=== PATIENT | male | born 1950 | race Caucasian/White ===

== ENCOUNTER → 2016-09-25 | Outpatient (CLI) | payer OTHER ==
[~2016-09-25] MED LIST: ASPI-346 PO; FRS/40 PO; GABA1CAP5 PO; LISI20TA3 PO; MAGN400T6 PO; METF1TAB53 PO; METO1TAB66 PO; METO1TAB69 PO; MULT-506 PO; ROSU40TA PO
== END | disposition home or self-care (01) ==
LOC: C.LABSPEC 12:22
PROVIDERS: ATTEND Internal Medicine
DX: B34.9 Viral infection, unspecified (principal)

== ENCOUNTER → 2017-01-22 | Outpatient (CLI) | payer OTHER ==
[~2017-01-22] MED LIST changes: +GABA800T PO; +GLIP-197 PO; +METO-452 PO; +METO-479 PO; +METO100T44 PO; -METO1TAB66 PO; -METO1TAB69 PO; +POTA20TA16 PO
[2017-01-22 12:59] LABS: BASO % 0.6 %; BASO ABS # 0.06 K/uL (0-0.2); COMPLETE YES; EOS % 2.3 %; HEMATOCRIT 51.6 % (42-52); IG% 0.3 %; LYMPH % 25.7 %; LYMPH ABS # 2.46 K/uL (1.2-3.4); MEAN CELL VOLUME 91.5 fL (80-100); MEAN CORPUSCULAR HEMOGLOBIN 27.1 pg (25-34); MEAN CORPUSCULAR HGB CONC 29.7 g/dl (32-36); MONO % 9.1 %; PLATELET COUNT 304 K/uL (130-400); RED BLOOD COUNT 5.64 M/uL (4.7-6.1); WHITE BLOOD COUNT 9.59 K/uL (4.8-10.8)
[2017-01-22 13:23] LABS: ALT/SGPT 14 U/L (12-78); BLOOD UREA NITROGEN 8 mg/dl (7-18); BUN/CREATININE RATIO 6.9 (10-20); CARBON DIOXIDE 35 mmol/L (21-32); CHLORIDE 95 mmol/L (98-107); CHOLESTEROL 102 mg/dl (0-200); GLUCOSE 327 mg/dl (70-99); SODIUM 138 mmol/L (136-145); TRIGLYCERIDES 261 mg/dl (0-150); VERY LOW DENSITY LIPOPROT CALC 52 mg/dl
[2017-01-22 13:28] LABS: ALB/GLOB RATIO 0.8 (0.9-2); ALKALINE PHOSPHATASE 87 U/L (45-117); AST/SGOT 12 U/L (15-37); CHOLESTEROL/HDL RATIO 2.8; HDL CHOLESTEROL 36 mg/dl
[2017-01-22 13:35] LABS: BETA-HYDROXYBUTYRATE 1.56 mg/dL (0.2-2.81)
[2017-01-22 13:44] LABS: ESTIMATED AVERAGE GLUCOSE 214 mg/dl; HA1C FLAG Normal (Normal)
[2017-01-22 15:20] LABS: RATIO 675.7 mcg/mg (0-30.0)
[2017-01-22 18:22] LABS: CALCIUM 9.1 mg/dl (8.5-10.1)
== END | disposition home or self-care (01) ==
LOC: C.LABSPEC 12:09
PROVIDERS: ATTEND Internal Medicine
DX: E11.65 Type 2 diabetes mellitus with hyperglycemia (principal); I25.10 Atherosclerotic heart disease of native coronary artery without angina pectoris; J44.9 Chronic obstructive pulmonary disease, unspecified; E78.5 Hyperlipidemia, unspecified

== ENCOUNTER → 2017-02-03 | Outpatient (CLI) | payer OTHER ==
[~2017-02-03] MED LIST changes: -GABA800T PO; -GLIP-197 PO; -METO-452 PO; -METO-479 PO; -METO100T44 PO; +METO1TAB66 PO; +METO1TAB69 PO; -POTA20TA16 PO
[2017-02-03 10:14] LABS: HEMATOCRIT 49.9 % (42-52); MEAN CELL VOLUME 89.1 fL (80-100); MEAN CORPUSCULAR HEMOGLOBIN 28.6 pg (25-34); MEAN CORPUSCULAR HGB CONC 32.1 g/dl (32-36); PLATELET COUNT 296 K/uL (130-400); WHITE BLOOD COUNT 10.86 K/uL (4.8-10.8)
[2017-02-03 10:41] LABS: ALT/SGPT 12 U/L (12-78); AST/SGOT 12 U/L (15-37); BLOOD UREA NITROGEN 9 mg/dl (7-18); BUN/CREATININE RATIO 10.6 (10-20); CALCIUM 9.3 mg/dl (8.5-10.1); CARBON DIOXIDE 34 mmol/L (21-32); CHLORIDE 99 mmol/L (98-107); CREATININE 0.88 mg/dl (0.60-1.40); GLUCOSE 164 mg/dl (70-99); MAGNESIUM 1.9 mg/dl (1.8-2.4); POTASSIUM 3.7 mmol/L (3.5-5.1); SODIUM 139 mmol/L (136-145)
[2017-02-03 10:44] LABS: CHOLESTEROL 113 mg/dl (0-200); CHOLESTEROL/HDL RATIO 3.1; HDL CHOLESTEROL 36 mg/dl; TRIGLYCERIDES 200 mg/dl (0-150); VERY LOW DENSITY LIPOPROT CALC 40 mg/dl
== END | disposition home or self-care (01) ==
LOC: C.LAB 09:08
PROVIDERS: ATTEND Internal Medicine Cardiovascular Disease
DX: E78.5 Hyperlipidemia, unspecified (principal); I25.10 Atherosclerotic heart disease of native coronary artery without angina pectoris; I25.5 Ischemic cardiomyopathy; E83.42 Hypomagnesemia; I50.22 Chronic systolic (congestive) heart failure; R00.0 Tachycardia, unspecified; I11.0 Hypertensive heart disease with heart failure

== ENCOUNTER 2017-03-03 14:29 | Emergency (ER) | payer OTHER ==
[~2017-03-03] VITALS: Ht 185.4 cm; Wt 99.5 kg
[~2017-03-03 14:29] MED LIST changes: -METO1TAB66 PO
[2017-03-03 14:36] VITALS: TEMP 36.5; Ht 185.4 cm; Wt 99.5 kg
[2017-03-03] MEDS ORDERED: ADENOSINE IV SOLN 3 MG/ML 2 ML VIAL ONE ×2 (14:53)
--- NOTE | 2017-03-03 15:06 | EMERGENCY ROOM VISIT NOTE ---
History Report prepared by Rad: Leon Argueta Under the Supervision of: Dr. Shiraz Patterson M.D. First contact with patient: 14:49 Chief Complaint: TACHYCARDIA Stated Complaint: ELEVATED HEARTRATE, LOW BLOOD PRESSURE History of Present Illness The patient is a 66 year old male who presents to the Emergency Room with complaints of constant tachycardia beginning this morning. The patient states that he took his heart rate at home, and then received a phone call from ID and was told to go to the ED. He reports that he feels fine, and he did not even notice his symptoms. The patient notes that he was cutting the grass yesterday but did nothing out of the ordinary. He states that he is currently taking Metoprolol, and he has not missed a dose. The patient reports that he has not had changes in his medication. 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 The patient states that he has a history of two MIs as well. He denies chest pain and shortness of breath. Source of History: patient Onset: this morning Position: chest Quality: other (tachycardia) Timing: constant Associated Symptoms: No chest pain, No SOB Review of Systems See HPI for pertinent positives & negatives. A total of 10 systems reviewed and were otherwise negative. Past Medical & Surgical Medical Problems: (1) Kidney stones Family History FHx: cancer FHx: heart disease Hypertension Kidney disease Kidney stones Social History Smoking Status: Former Smoker Housing Status: lives alone Current/Historical Medications Scheduled Aspirin (Graeme Low Dose), 81 MG PO QAM Furosemide (Lasix), 80 MG PO QAM Gabapentin (Neurontin), 1,200 MG PO BID Lisinopril (Prinivil), 40 MG PO BID Magnesium Oxide (Mag-Ox), 400 MG PO BID Metformin Hcl (Glucophage Ext Rel), 1,000 MG PO BID Metoprolol Succ (Toprol Xl) (Toprol-Xl ), 100 MG PO QAM Metoprolol Succinate (Toprol Xl), 1 TAB PO DAILY Multivitamin (Multivitamin), 1 TAB PO QAM Rosuvastatin Calcium (Crestor), 40 MG PO HS Allergies Coded Allergies: No Known Allergies (Verified , 03/03/17) Physical Exam Vital Signs Date Time Temp Pulse Resp B/P (MAP) Pulse Ox O2 Delivery O2 Flow Rate FiO2 03/03/17 15:58 102 14 114/70 94 Nasal Cannula 2.0 03/03/17 15:04 102 19 95 03/03/17 15:01 95 Nasal Cannula 4.0 03/03/17 15:00 113 03/03/17 14:59 105 18 113/74 94 03/03/17 14:54 153 25 03/03/17 14:53 153 03/03/17 14:51 158/136 03/03/17 14:36 36.5 159 18 113/72 92 Room Air Physical Exam GENERAL: Patient is well appearing and in no acute distress. HEENT: No acute trauma, normocephalic atraumatic, mucous membranes moist, no nasal congestion, no scleral icterus. NECK: No stridor, no adenopathy, no meningismus, trachea is midline. LUNGS: No dyspnea. Clear to auscultation and equal bilaterally. No wheeze, no rhonchi. HEART: Tachycardic rate and regular rhythm. No murmurs, rubs, gallops appreciated. ABDOMEN: Soft, nontender, bowel sounds positive, no masses appreciated, no peritonitis. BACK: No midline tenderness, no CVA tenderness EXTREMITIES: Normal motion all extremities, no cyanosis, no edema. NEUROLOGIC: Alert and oriented, no acute motor or sensory deficits, no focal weakness, cranial nerves grossly intact. SKIN: No rash, no jaundice, no diaphoresis. Medical Decision & Procedures ER Provider Diagnostic Interpretation: X ray results are stated below per my interpretation and the radiologist's interpretation. CHEST ONE VIEW PORTABLE CLINICAL HISTORY: 66 years-old Male presenting with Palpitations. TECHNIQUE: Portable upright AP view of the chest was obtained. COMPARISON: 04/25/2015. FINDINGS: Smith sternotomy wires and mediastinal surgical clips again noted. Enlargement of the cardiac silhouette, stable from prior. No focal infiltrate. No large effusion or pneumothorax. Osseous structures and upper abdomen normal. IMPRESSION: 1. Cardiomegaly. No jesika pulmonary edema. Electronically signed by: Carlos Nguyen M.D. 03/03/2017 3:15 PM Dictated Date/Time: 03/03/2017 3:14 PM Laboratory Results 03/03/17 14:50 Red Blood Count 5.58, Mean Corpuscular Volume 88.0, Mean Corpuscular Hemoglobin 27.2, Mean Corpuscular Hemoglobin Concent 31.0, Mean Platelet Volume 10.6, Neutrophils (%) (Auto) 64.4, Lymphocytes (%) (Auto) 21.4, Monocytes (%) (Auto) 13.1, Eosinophils (%) (Auto) 0.6, Basophils (%) (Auto) 0.2, Neutrophils # (Auto ) 8.91, Lymphocytes # (Auto) 2.96, Monocytes # (Auto) 1.82, Eosinophils # (Auto ) 0.09, Basophils # (Auto) 0.03 03/03/17 14:50 Test 03/03/17 14:50 White Blood Count 13.85 K/uL (4.8-10.8) Red Blood Count 5.58 M/uL (4.7-6.1) Hemoglobin 15.2 g/dL (14.0-18.0) Hematocrit 49.1 % (42-52) Mean Corpuscular Volume 88.0 fL (80-100) Mean Corpuscular Hemoglobin 27.2 pg (25-34) Mean Corpuscular Hemoglobin Concent 31.0 g/dl (32-36) Platelet Count 315 K/uL (130-400) Mean Platelet Volume 10.6 fL (7.4-10.4) Neutrophils (%) (Auto) 64.4 % Lymphocytes (%) (Auto) 21.4 % Monocytes (%) (Auto) 13.1 % Eosinophils (%) (Auto) 0.6 % Basophils (%) (Auto) 0.2 % Neutrophils # (Auto) 8.91 K/uL (1.4-6.5) Lymphocytes # (Auto) 2.96 K/uL (1.2-3.4) Monocytes # (Auto) 1.82 K/uL (0.11-0.59) Eosinophils # (Auto) 0.09 K/uL (0-0.5) Basophils # (Auto) 0.03 K/uL (0-0.2) RDW Standard Deviation 43.7 fL (36.4-46.3) RDW Coefficient of Variation 13.5 % (11.5-14.5) Immature Granulocyte % (Auto) 0.3 % Immature Granulocyte # (Auto) 0.04 K/uL (0.00-0.02) Anion Gap 5.0 mmol/L (3-11) Est Creatinine Clear Calc Drug Dose 58.5 ml/min Estimated GFR () 54.7 Estimated GFR (Non- 47.2 BUN/Creatinine Ratio 10.7 (10-20) Calcium Level 9.4 mg/dl (8.5-10.1) Magnesium Level 2.2 mg/dl (1.8-2.4) Total Creatine Kinase 72 U/L (39-308) Creatine Kinase MB 1.5 ng/ml (0.5-3.6) Creatine Kinase MB Ratio 2.1 (0-3.0) Troponin I 0.056 ng/ml (0-0.045) Thyroid Stimulating Hormone (TSH) 0.946 uIu/ml (0.300-4.500) Laboratory results as reviewed by me. Medications Administered Medications (Trade) Dose Ordered Sig/Griffin Route Start Time Stop Time Status Last Admin Dose Admin Adenosine (Adenosine IV) 3 mg STK-MED ONCE .ROUTE 03/03/17 14:53 03/03/17 14:54 DC 03/03/17 15:05 3 MG Adenosine (Adenosine IV) 3 mg STK-MED ONCE .ROUTE 03/03/17 14:53 03/03/17 14:54 DC 03/03/17 15:06 3 MG Sodium Chloride 1,000 ml @ 125 mls/hr Q8H STAT IV 03/03/17 15:18 03/03/17 23:17 03/03/17 15:18 125 MLS/HR Metoprolol Succinate (Toprol Xl Tab) 50 mg NOW STAT PO 03/03/17 16:17 03/03/17 16:18 DC 03/03/17 16:17 50 MG Toprol XL 50mg PO Now ECG Indication: tachycardia Rate (beats per minute): 153 Rhythm: SVT Findings: nonspecific-ST abn (Lateral), no ectopy Change: Repeat EKG in the same visit: Sinus tachycardia, rate of 105, with 1st degree AV block and LBBB ED Course 1450: The patient was evaluated in room A12B. A complete history and physical exam was performed. 1453: Ordered Adenosine 3 mg .ROUTE, Adenosine 3 mg .ROUTE 1516: I reevaluated the patient, and he is feeling much better. 1518: Ordered Sodium Chloride 1000 ml @ 125 mls/hr IV 1607: I discussed the patient's case with Dr. Camejo, Cardiology. He suggests the patient is discharge, and his Metoprolol is increased to 150mg daily. 1616: Reevaluated the patient. I discussed my consult with Dr. Camejo, Cardiology. Discussed results and discharge instructions: he verbalized understanding and agreement. The patient is ready for discharge. Medical Decision Differential: NSR, SVT, PACs, PVCs, Cardiac Dysrhythmia, Endocrine Dysfunction, Eletrolyte/Metabolic Abnormality, Pulmonary Embolism, Infectious, GI, amonst other pathologies entertained. 66 yr old pleasant male with history of CABG a few years ago and notes doing well until this morning when note quite feeling himself. Non-specific symptoms. Noted HR elevated at home and advised [facility] come [facility]. In SVT on arrival. Verbally consented patient to adensine and risks/benefits to which he agrees. Given 12 mg adenosine and [id number] rhythm to NSR. Low grade tachy which he states is normal for him. Feeling much better. Given IV fluids. Labs checked. Reviewed mild trop elevation with mild bump in Cr with Dr Camejo who agrees with outpatient management. Suspect Trop elevated secondary to rate as opposed to acs. Will follow up with cards in near future and Dr Camejo advised increasing Toprol XL to 150mg daily. Reviewed with Pts PCP who is aware of plan and will check in with patient for Cr evaluation. Medication Reconcilliation Current Medication List: was personally reviewed by me Blood Pressure Screening Patient's blood pressure: Normal blood pressure Blood pressure disposition: Did not require urgent referral Consults Time Called: 1602 Consulting Physician: Dr. Camejo, Cardiology Returned Call: 1607 I discussed the patient's case with Dr. Camejo, Cardiology. He suggests the patient is discharge, and his Metoprolol is increased to 150mg daily. Impression Primary Impression: SVT (supraventricular tachycardia) Additional Impressions: Dehydration Elevated troponin Critical Care I have personally spent greater than 45 minutes of critical care time in the direct management of this patient. This was a life/limb threatening event. This includes time spent evaluating patient, direct bedside care, chart review, placing orders, interpretation of diagnostic studies, discussion with consultants, patient, and family members, as well as other required patient management activities. This 45 minutes is in excess of all separately billable procedures. Scribe Attestation The scribe's documentation has been prepared under my direction and personally reviewed by me in its entirety. I confirm that the note above accurately reflects all work, treatment, procedures, and medical decision making performed by me. Departure Information Dispostion Home / Self-Care Prescriptions Metoprolol Succinate (TOPROL XL) 50 Mg Tab 1 TAB PO DAILY for 30 Days, #30 TAB 5 Refills Prov: Shiraz Patterson M.D. 03/03/17 Referrals Stevo Magdaleno M.D. (PCP) Patient Instructions My [facility] Additional Instructions Please follow up with your Primary Care Provider in the next week for repeat check and evaluation of your kidneys. Keep well hydrated and avoid excessive exertion over the next few days. Follow up with your Early Childhood Assistant for repeat evaluation as well as soon as possible. We have increased your Toprol XL dose to 150mg Daily from 100mg currently. We will send a prescription of 50mg Toprol XL to your pharmacy. Problem Qualifiers
[2017-03-03 15:15] LABS: BASO % 0.2 %; BASO ABS # 0.03 K/uL (0-0.2); COMPLETE YES; EOS % 0.6 %; HEMATOCRIT 49.1 % (42-52); IG% 0.3 %; LYMPH % 21.4 %; LYMPH ABS # 2.96 K/uL (1.2-3.4); MEAN CORPUSCULAR HEMOGLOBIN 27.2 pg (25-34); MEAN PLATELET VOLUME 10.6 fL (7.4-10.4); MONO % 13.1 %; NEUT % 64.4 %; PLATELET COUNT 315 K/uL (130-400); RED BLOOD COUNT 5.58 M/uL (4.7-6.1); WHITE BLOOD COUNT 13.85 K/uL (4.8-10.8)
--- NOTE | 2017-03-03 15:17 | DIAGNOSTIC IMAGING REPORT ---
CHEST ONE VIEW PORTABLE CLINICAL HISTORY: 66 years-old Male presenting with Palpitations. TECHNIQUE: Portable upright AP view of the chest was obtained. COMPARISON: 04/25/2015. FINDINGS: Smith sternotomy wires and mediastinal surgical clips again noted. Enlargement of the cardiac silhouette, stable from prior. No focal infiltrate. No large effusion or pneumothorax. Osseous structures and upper abdomen normal. IMPRESSION: 1. Cardiomegaly. No jesika pulmonary edema. Electronically signed by: Carlos Nguyen M.D. 03/03/2017 3:15 PM Dictated Date/Time: 03/03/2017 3:14 PM
[2017-03-03] MEDS ORDERED: SODIUM CHLORIDE 0.9% 1000ML 1,000 ML IV STA (15:18)
[2017-03-03 15:30] LABS: BUN/CREATININE RATIO 10.7 (10-20); CALCIUM 9.4 mg/dl (8.5-10.1); CREATININE 1.5 mg/dl (0.60-1.40); MAGNESIUM 2.2 mg/dl (1.8-2.4); POTASSIUM 4.6 mmol/L (3.5-5.1)
[2017-03-03 15:49] LABS: CKMB/CK RATIO 2.1 (0-3.0); THYROID STIMULATING HORMONE 0.946 uIu/ml (0.300-4.500)
[2017-03-03 15:58] VITALS: BP 114/70; PULSE 102; O2SAT 94
[2017-03-03] MEDS ORDERED: METOPROLOL SUCC 50MG EXT REL TAB PO STA (16:17)
[2017-03-03] MEDS ORDERED: METO1TAB66 PO (16:23)
== END 2017-03-03 16:43 | disposition home or self-care (01) ==
LOC: C.EDB 14:32 → C.EDA 16:43
DX: I47.1 Supraventricular tachycardia (principal); E86.0 Dehydration; R78.89 Finding of other specified substances, not normally found in blood; Z87.442 Personal history of urinary calculi; Z87.891 Personal history of nicotine dependence; Z79.82 Long term (current) use of aspirin; Z79.4 Long term (current) use of insulin; Z79.899 Other long term (current) drug therapy; Z80.9 Family history of malignant neoplasm, unspecified; Z82.49 Family history of ischemic heart disease and other diseases of the circulatory system; Z84.1 Family history of disorders of kidney and ureter

== ENCOUNTER → 2017-03-08 | Outpatient (CLI) | payer OTHER ==
[~2017-03-08] MED LIST changes: +METO1TAB66 PO
[2017-03-08 13:57] LABS: BLOOD UREA NITROGEN 10 mg/dl (7-18); BUN/CREATININE RATIO 11.4 (10-20); CALCIUM 9.5 mg/dl (8.5-10.1); CARBON DIOXIDE 34 mmol/L (21-32); CHLORIDE 97 mmol/L (98-107); CREATININE 0.88 mg/dl (0.60-1.40); GLUCOSE 146 mg/dl (70-99); POTASSIUM 4.2 mmol/L (3.5-5.1); SODIUM 137 mmol/L (136-145)
== END | disposition home or self-care (01) ==
LOC: C.LABSPEC 12:29
PROVIDERS: ATTEND Internal Medicine
DX: R94.4 Abnormal results of kidney function studies (principal)

== ENCOUNTER → 2017-05-20 | Outpatient (CLI) | payer OTHER ==
[2017-05-20 13:06] LABS: BLOOD UREA NITROGEN 11 mg/dl (7-18); BUN/CREATININE RATIO 12.6 (10-20); CALCIUM 9.2 mg/dl (8.5-10.1); CARBON DIOXIDE 35 mmol/L (21-32); CHLORIDE 98 mmol/L (98-107); CHOLESTEROL 94 mg/dl (0-200); CREATININE 0.88 mg/dl (0.60-1.40); GLUCOSE 185 mg/dl (70-99); POTASSIUM 3.8 mmol/L (3.5-5.1); SODIUM 138 mmol/L (136-145); TRIGLYCERIDES 164 mg/dl (0-150); VERY LOW DENSITY LIPOPROT CALC 33 mg/dl
[2017-05-20 13:10] LABS: CHOLESTEROL/HDL RATIO 2.8; HDL CHOLESTEROL 33 mg/dl
[2017-05-20 14:17] LABS: ESTIMATED AVERAGE GLUCOSE 214 mg/dl; HA1C FLAG Normal (Normal)
== END | disposition home or self-care (01) ==
LOC: C.LABSPEC 12:22
PROVIDERS: ATTEND Internal Medicine
DX: I10 Essential (primary) hypertension (principal); I25.10 Atherosclerotic heart disease of native coronary artery without angina pectoris; E78.5 Hyperlipidemia, unspecified; E11.9 Type 2 diabetes mellitus without complications

== ENCOUNTER → 2017-05-26 | Outpatient (CLI) | payer OTHER ==
[2017-05-26 13:19] LABS: HEMATOCRIT 50.3 % (42-52); MEAN CELL VOLUME 90.5 fL (80-100); MEAN CORPUSCULAR HEMOGLOBIN 29.7 pg (25-34); MEAN CORPUSCULAR HGB CONC 32.8 g/dl (32-36); MEAN PLATELET VOLUME 10.8 fL (7.4-10.4); PLATELET COUNT 257 K/uL (130-400); RED BLOOD COUNT 5.56 M/uL (4.7-6.1)
[2017-05-26 13:33] LABS: PARTIAL THROMBOPLASTIN RATIO 1.1; PROTHROMBIN TIME (PATIENT) 10.7 SECONDS (9.0-12.0)
== END | disposition home or self-care (01) ==
LOC: C.LAB 11:41
PROVIDERS: ATTEND Internal Medicine Cardiovascular Disease
DX: Z01.818 Encounter for other preprocedural examination (principal)

== ENCOUNTER 2024-06-10 18:13 | Inpatient (IN) ==
--- NOTE | 2024-06-10 18:55 | XRay Report ---
EXAM: Radiograph of the Chest 1 View INDICATION: Weakness. Cough. TECHNIQUE: Frontal view of the chest. COMPARISON: 09/01/2019 FINDINGS: Lungs and pleural spaces: Stable pulmonary hyperinflation. Minimal basilar parenchymal scarring noted. No consolidation or pulmonary edema. No pleural effusion or pneumothorax. Heart: Coronary bypass changes noted. Mediastinum: Normal contour. Bones/joints: No fracture, erosion or dislocation. Soft tissues: No abnormality noted. No radiopaque foreign body noted. Vasculature: Stable ectatic aorta. Upper abdomen: No abnormality noted. IMPRESSION: Chronic changes. No acute disease. ACT 112: Negative or not required by law. Electronically signed by Daisy Medrano 06-10-2024 6:53 PM
[2024-06-10] MEDS: ACETAMINOPHEN 500 MG TAB PO STA (19:02)
[2024-06-10] MEDS: dexAMETHasone**PF** 10 MG/ML VIAL IV ONE (19:02)
--- NOTE | 2024-06-10 19:07 | Emergency Department Note ---
Impression & Plan COVID-19, Chronic hypoxemic respiratory failure, Weakness ED Provider Note Provider: Augusto Jessica MD DATE OF SERVICE: 06/10/2024 CHIEF COMPLAINT:weak, COVID HISTORY OF PRESENT ILLNESS: Patient is a 73-year-old gentleman with history of CAD, heart failure, kidney stones, COPD on chronic 4 L of oxygen presenting here today with sister reporting that over the past 5 days he has been having some increasing weakness and myalgias. Tested positive for COVID on Wednesday. Is not a COVID before but is vaccinated. Has not had increase his oxygen requirement does not feel horribly short of breath but a little bit more. States he feels generally weak and has a lot of bodyaches. Not eating and drinking so well the sisters been trying to help with protein shakes today. No significant abdominal pain or vomiting or diarrhea reported. Fell a few days ago and scraped his left arm but denies striking his head. Denies syncope or dizziness. Did clean this area. PAST MEDICAL HISTORY: As noted above MEDICATIONS:reviewed home meds, reports taking SOCIAL HISTORY:Smoker, lives by himself PHYSICAL EXAM: GENERAL: alert and oriented in no acute distress on stretcher Head: normocephalic and atraumatic EYES: No injection, discharge or icterus. EOMI. NECK: Trachea midline. Supple. ENT: Mucous membranes pink and moist. LUNGS: Airway patent. No retractions. Breath sounds expiratory wheeze HEART: Regular rate and rhythm. No chest wall tenderness ABDOMEN: Soft and non-tender, without guarding or rebound. SKIN: Acyanotic, warm, dry EXTREMITIES: Without swelling, tenderness or deformity with an approximately 3 cm healing skin tear over the left proximal forearm. No significant bony tenderness here. Good range of motion of the left shoulder and arm. NEUROLOGICAL: No focal deficits weakness. No aphasia. No facial droop or slurred speech. EK bpm normal sinus rhythm without PVC or PAC. No acute ST segment elevation or depression with QTc 47. CONTINUOUS CARDIAC MONITORING: was ordered and showed a heart rate of 80s to 90s bpm in normal sinus rhythm with some brief episodes of sinus tachycardia in the 100s on neb Patient's laboratory studies and imaging reviewed. Differential includes Infection, dehydration, metabolic abnormality, hypo/hyperglycemia, electrolyte disturbance, anemia, hypoxia, cardiac sources, intracerebral event, toxicologic, neurologic, as well as other pathologies. IMPRESSION/MEDICAL DECISION MAKING: Chronic medical conditions including similar respiratory disease. Wheezy and given some steroid and DuoNeb here. General weakness likely related to COVID that he tested positive for at home. X-ray obtained to exclude underlying pneumonia or pneumothorax. Does not seem fluid overloaded. Did review the chest x-ray inter myself without findings of pneumothorax or pneumonia or pulmonary edema/effusion. At baseline oxygenation but more generalized weakness and decreased intake. Electrolytes, renal function, and CBC obtained. Full respiratory viral panel obtained. Blood here with mild anemia 10.7. No leukocytosis 8.3. No severe electrolyte abnormalities however with a creatinine elevation to 2.1 and BUN of 22. Compared to previous last values for about a year ago creatinine that time was 1.3. Some scanned notes from the [facility] indicate the patient may have stage III-IV CKD so unsure if the creatinine of 2.1 is acutely new. No transaminitis is noted. Normal troponin. No evidence of rhabdomyolysis/elevated CK. Patient on reassessment still feeling quite weak and fatigued. Discussed with him options at this time. Wish to be careful avoid fluid overload will try some oral hydration and in shared decision making he wished to be observed here as he lives alone by himself and his week. I do not feel the skin tear on his left arm requires further closure or antibiotics at this timedoubt cellulitis. Doubt fracture here. Did chlorhexidine the skin tear myself and bandaged. Will reach out to the hospitalist further observation given his weakness. DIAGNOSIS: COVID-19, weakness, chronic respiratory failure, CKD DISPOSITION: Hospitalist will evaluate Patient was agreeable with this plan. Past Med/Surg History Problem List (Updated 06/10/24 @ 20:37 by Augusto Jessica M.D.) Weakness (Acute) COVID-19 (Acute) Urinary symptom or sign Chronic heart failure with preserved ejection fraction Cardiomyopathy Ischemic CM Vitamin D deficiency Idiopathic polyneuropathy CAD (coronary artery disease) S/p NSTEMI and CABG x 3 IN 2015 Hypertension Gout Diabetes mellitus, type 2 Abdominal pain (Acute) Acute pulmonary edema (Acute) Acute respiratory failure (Acute) Bladder stones (Acute) Hypotension (Acute 09/09/13) Kidney stones (Acute) Paroxysmal SVT (supraventricular tachycardia) Respiratory failure (Acute) Urolithiasis (Acute 09/09/13) Urosepsis (Acute) Hearing deficit Encounter for pre-operative examination Polyp of colon COPD (chronic obstructive pulmonary disease) Influenza A Chronic hypoxemic respiratory failure (Acute) Hyponatremia Elevated BUN Medical History AVNRT (AV lisa re-entry tachycardia) Chronic diastolic CHF (congestive heart failure) On home oxygen therapy Chronic obstructive pulmonary disease Gout Cancer Peripheral neuropathy Myocardial Infarction Hyperlipidemia Surgical History S/P cystoscopy with ureteral stent placement S/P ablation of accessory bypass tract History of esophagogastroduodenoscopy (EGD) History of colonoscopy History of tooth extraction History of coronary artery bypass graft Social History Smoking Status: Current every day smoker Cigarettes Per Day: 15 CIGS PER WEEK; Second Hand Exposure: No; Do You Dip or Chew Tobacco: No; Hx Alcohol Use: No Hx Substance Use: No Preferred Language: Upper Sorbian Communication Ability: Effective Change Management Administrator Required: No Beliefs That Will Affect Care: None marital status: Current Living Situation: Alone Feels Safe at Home: Yes Assistive Devices: Denture - Upper, Denture - Lower and Oxygen - Continuous Allergies Allergies Allergy/AdvReac Type Severity Reaction Status Date / Time No Known Allergies Allergy Verified 04/30/23 10:17 Home Meds Home Medications Medication Instructions Recorded Confirmed gabapentin 800 mg tablet 800 mg PO BID 07/08/18 04/30/23 glipizide 5 mg tablet 5 mg PO BID 07/08/18 04/30/23 lisinopril 20 mg tablet 20 mg PO BID 07/08/18 04/30/23 magnesium oxide 400 mg PO BID 07/08/18 04/30/23 metformin 1,000 mg tablet 1,000 mg PO BID 07/08/18 04/30/23 multivitamin 1 tab PO QAM 07/08/18 04/30/23 potassium chloride 20 mEq 20 meq PO QAM 07/08/18 04/30/23 tablet,extended release rosuvastatin 40 mg tablet (Crestor) 40 mg PO QAM 07/08/18 04/30/23 furosemide 40 mg tablet (Lasix) 40 mg PO QAM 06/04/20 04/30/23 aspirin 81 mg tablet,delayed 81 mg PO QAM 07/08/20 04/30/23 release metoprolol succinate 100 mg 100 mg PO DAILY 11/16/22 04/30/23 tablet,extended release 24 hr Previous Rx's Medication Instructions Recorded tamsulosin 0.4 mg capsule 0.4 mg PO HS #30 caps 07/22/20 peg [id number] See Rx Instructions PO .COMPLEX #2 06/08/23 178.7-7.3-0.5-1.12-0.9 gram oral mL soln (Suflave) Results & Data (ED) Vital Signs Vital Signs - 24 hr 06/10/24 18:17 06/10/24 18:34 06/10/24 18:40 Temperature 36.2 C L Temperature Source Temporal Artery Scan Pulse Rate 102 H 96 H Pulse Rate [Right Finger] 94 H Pulse Rhythm Regular Pulse Rhythm [Right Finger] Regular Pulse Strength Normal Pulse Strength [Right Finger] Normal Respiratory Rate 20 Respiratory Effort / Characteristics Non-Labored Spontaneous Non-Labored Respiratory Depth Normal Normal Respiratory Pattern Regular Regular Blood Pressure 105/71 Blood Pressure [Right Arm] 113/89 Blood Pressure Mean 82 Blood Pressure Mean [Right Arm] 97 Blood Pressure Position Sitting Blood Pressure Position [Right Arm] Lying Pulse Oximetry 93 98 Oxygen Delivery Method Nasal Cannula Nasal Cannula Oxygen Flow Rate 4 4 Sepsis Recent Fever Within 48 Hours No Sepsis New/Unexplained Change in Mental Status N/A Sepsis Action Taken by Nursing No Action Required 06/10/24 18:42 06/10/24 19:27 06/10/24 20:13 Temperature Temperature Source Pulse Rate 94 H Pulse Rate [Right Finger] 90 Pulse Rhythm Regular Pulse Rhythm [Right Finger] Pulse Strength Pulse Strength [Right Finger] Respiratory Rate 18 Respiratory Effort / Characteristics Non-Labored Spontaneous Respiratory Depth Respiratory Pattern Blood Pressure Blood Pressure [Right Arm] 131/90 Blood Pressure Mean Blood Pressure Mean [Right Arm] 103 Blood Pressure Position Blood Pressure Position [Right Arm] Lying Pulse Oximetry 98 94 97 Oxygen Delivery Method Room Air Nasal Cannula Nasal Cannula Oxygen Flow Rate 4 4 Sepsis Recent Fever Within 48 Hours Sepsis New/Unexplained Change in Mental Status Sepsis Action Taken by Nursing Laboratory Data 06/10/24 19:00 06/10/24 19:00 Lab Results 06/10/24 06/10/24 Range/Units 18:38 19:00 WBC 8.31 (4.8-10.8) K/ul RBC 3.61 L (4.70-6.10) M/uL Hgb 10.7 L (14.0-18.0) g/dl Hct 34.3 L (42.0-52.0) % MCV 95.0 (80.0-100.0) fL MCH 29.6 (25.0-34.0) pg MCHC 31.2 L (32.0-36.0) g/dL RDW Std Deviation 44.5 (36.4-46.3) fL RDW Coeff of Zeny 12.9 (11.5-14.5) % Plt Count 328 (130-400) K/uL MPV 9.5 (9.4-12.4) fL Immature Gran % (Auto) 0.5 % Neut % (Auto) 69.8 % Lymph % (Auto) 17.9 % Ross % (Auto) 11.1 % Eos % (Auto) 0.5 % Baso % (Auto) 0.2 % Neut # (Auto) 5.80 (1.40-6.50) K/uL Lymph # (Auto) 1.49 (1.20-3.40) K/uL Ross # (Auto) 0.92 H (0.11-0.59) K/uL Eos # (Auto) 0.04 (0.00-0.50) K/uL Baso # (Auto) 0.02 (0.00-0.20) K/uL Immature Gran # (Auto) 0.04 (0.01-0.20) K/uL PT 11.1 (9.0-12.0) Seconds INR 1.0 (0.9-1.1) Sodium 140 (136-145) mmol/L Potassium 4.2 (3.5-5.1) mmol/L Chloride 95 L (98-107) mmol/L Carbon Dioxide 40 H (21-32) mmol/L Anion Gap 5 (3-11) BUN 22 (6-23) mg/dl Creatinine 2.13 H (0.6-1.4) mg/dl Est Cr Clr Drug Dosing 32.9 ml/min eGFR 31.68 BUN/Creatinine Ratio 10.3 (10-20) Glucose 155 H (70-99(Fasting)) mg/dl Calcium 8.7 (8.6-10.3) mg/dl Magnesium 2.1 (1.7-2.4) mg/dl Total Bilirubin 0.4 (0.2-1.0) mg/dl AST 32 (13-39) U/L ALT 15 (7-52) U/L Alkaline Phosphatase 96 (34-104) U/L Total Creatine Kinase 33 (30-223) U/L Troponin I High Sens 11.1 (0-20) pg/ml B-Natriuretic Peptide 115 H (0-100) pg/ml Total Protein 6.7 (6.0-8.3) gm/dl Albumin 2.8 L (3.4-5.0) gm/dl Globulin 3.9 (2.5-4.0) gm/dl Albumin/Globulin Ratio 0.7 L (0.9-2) TSH 1.228 (0.300-4.500) uIu/ml Adenovirus (PCR) Not Detected (NotDetected) B. pertussis DNA (PCR) Not Detected (NotDetected) B.parapertussis DNA PCR Not Detected (NotDetected) C. pneumoniae DNA (PCR) Not Detected (NotDetected) Coronavirus OC43 (PCR) Not Detected (NotDetected) Coronavirus HKU1 (PCR) Not Detected (NotDetected) Coronavirus 229E (PCR) Not Detected (NotDetected) SARS-CoV-2 (PCR) DETECTED A (NotDetected) Coronavirus NL63 (PCR) Not Detected (NotDetected) Human Metapneumovir PCR Not Detected (NotDetected) Influenza Type A (PCR) Not Detected (NotDetected) Influenza Type B (PCR) Not Detected (NotDetected) M. pneumoniae (PCR) Not Detected (NotDetected) Parainfluenza 1 (PCR) Not Detected (NotDetected) Parainfluenza 2 (PCR) Not Detected (NotDetected) Parainfluenza 3 (PCR) Not Detected (NotDetected) Parainfluenza 4 (PCR) Not Detected (NotDetected) RSV (PCR) Not Detected (NotDetected) Entero/Rhino (PCR) Not Detected (NotDetected) Administered Medications Discontinued Medications Acetaminophen (Acetaminophen 500 Mg Tab) 1,000 mg PO NOW STA Stop: 06/10/24 18:50 Last Admin: 06/10/24 19:02 Dose: 1,000 mg Documented By: MCKENZIE Albuterol (Albut/Ipratrop 3mg/0.5mg Neb 3 Ml Vial) 12 ml NEB ONE ONE; Protocol Stop: 06/10/24 18:50 Last Admin: 06/10/24 19:27 Dose: 12 ml Documented By: CAROLE Dexamethasone Sodium Phosphate (DexamethasonePf 10 Mg/Ml Vial) 6 mg IV NOW ONE Stop: 06/10/24 18:50 Last Admin: 06/10/24 19:02 Dose: 6 mg Documented By: MCKENZIE Imaging Data Radiologist's Impression: Chest X-Ray 06/10/24 18:39 EXAM: Radiograph of the Chest 1 View INDICATION: Weakness. Cough. TECHNIQUE: Frontal view of the chest. COMPARISON: 09/01/2019 FINDINGS: Lungs and pleural spaces: Stable pulmonary hyperinflation. Minimal basilar parenchymal scarring noted. No consolidation or pulmonary edema. No pleural effusion or pneumothorax. Heart: Coronary bypass changes noted. Mediastinum: Normal contour. Bones/joints: No fracture, erosion or dislocation. Soft tissues: No abnormality noted. No radiopaque foreign body noted. Vasculature: Stable ectatic aorta. Upper abdomen: No abnormality noted. IMPRESSION: Chronic changes. No acute disease. ACT 112: Negative or not required by law. Electronically signed by Daisy Medrano 06-10-2024 6:53 PM Discharge Plan Visit Data Chief Complaint: Flu Like Symptoms Stated Complaint: FLU LIKE SX,SOB ED Provider: Augusto Jessica Discharge Problem: COVID-19, Chronic hypoxemic respiratory failure, Weakness Forms Stand Alone Forms: My [facility] [employer] Prescriptions Prescriptions: No Action metoprolol succinate 100 mg tablet extended release 24 hr 100 mg PO DAILY Suflave 178.7-7.3-0.5 gram recon soln See Rx Instructions PO .COMPLEX Qty: 2 0RF Rx Instructions: orally; TAKE FIRST DOSE AT 6 PM AND SECOND DOSE 6 HOURS PRIOR TO PROCEDURE BIN: [id number] PCN: [id number] GROUP: [id number] multivitamin Tablet 1 tab PO QAM lisinopril 20 mg Tablet 20 mg PO BID gabapentin 800 mg Tablet 800 mg PO BID metformin 1,000 mg Tablet 1,000 mg PO BID glipizide 5 mg Tablet 5 mg PO BID rosuvastatin [Crestor] 40 mg Tablet 40 mg PO QAM magnesium oxide 400 mg Capsule 400 mg PO BID potassium chloride 20 mEq Tablet Extended Release 20 meq PO QAM furosemide [Lasix] 40 mg tablet 40 mg PO QAM aspirin 81 mg Tablet,Delayed Release (Dr/Ec) 81 mg PO QAM tamsulosin 0.4 mg capsule 0.4 mg PO HS Qty: 30 0RF Referrals Referrals: Divine Sibley MD [Primary Care Provider] -
[2024-06-10 19:16] LABS: Basophils # (auto) 0.02 K/uL (0.00-0.20); Basophils % (auto) 0.2 %; Eosinophils # (auto) 0.04 K/uL (0.00-0.50); Eosinophils % (auto) 0.5 %; Hematocrit (blood only) 34.3 % (42.0-52.0); Hemoglobin 10.7 g/dl (14.0-18.0); Immature Granulocytes # (auto) 0.04 K/uL (0.01-0.20); Immature Granulocytes % (auto) 0.5 %; Lymphocytes # (auto) 1.49 K/uL (1.20-3.40); Lymphocytes % (auto) 17.9 %; Mean Corpuscular Hemoglobin 29.6 pg (25.0-34.0); Mean Corpuscular Hgb Conc 31.2 g/dL (32.0-36.0); Mean Platelet Volume 9.5 fL (9.4-12.4); Monocytes # (auto) 0.92 K/uL (0.11-0.59); Monocytes % (auto) 11.1 %; Neutrophils % (auto) 69.8 %; Platelet Count 328 K/uL (130-400); RDW Coefficient of Variation 12.9 % (11.5-14.5); RDW Standard Deviation 44.5 fL (36.4-46.3); Red Blood Count 3.61 M/uL (4.70-6.10); White Blood Count 8.31 K/ul (4.8-10.8)
[2024-06-10] MEDS: ALBUT/IPRATROP 3MG/0.5MG NEB 3 ML VIAL NEB ONE (19:27)
[2024-06-10 19:37] LABS: Albumin Globulin Ratio 0.7 (0.9-2); Albumin Level 2.8 gm/dl (3.4-5.0); BUN Creatinine Ratio 10.3 (10-20); Bilirubin,Total 0.4 mg/dl (0.2-1.0); Calcium 8.7 mg/dl (8.6-10.3); Creatinine Clr Calc Pharmacy 32.9 ml/min; Globulin 3.9 gm/dl (2.5-4.0); Magnesium 2.1 mg/dl (1.7-2.4); Potassium 4.2 mmol/L (3.5-5.1); Total Protein 6.7 gm/dl (6.0-8.3)
[2024-06-10 19:40] LABS: Adenovirus PCR Not Detected (NotDetected); Bordetella parapertussis PCR Not Detected (NotDetected); Bordetella pertussis PCR Not Detected (NotDetected); Chlamydia pneumoniae PCR Not Detected (NotDetected); Coronavirus 229E PCR Not Detected (NotDetected); Coronavirus CoV-2 (COVID19)PCR DETECTED (NotDetected); Coronavirus HKU1 PCR Not Detected (NotDetected); Coronavirus NL63 PCR Not Detected (NotDetected); Coronavirus OC43PCR Not Detected (NotDetected); Human Metapneumovirus PCR Not Detected (NotDetected); Influenza A PCR Not Detected (NotDetected); Influenza B PCR Not Detected (NotDetected); Mycoplasma pneumoniae PCR Not Detected (NotDetected); Parainfluenza Virus 1 PCR Not Detected (NotDetected); Parainfluenza Virus 2 PCR Not Detected (NotDetected); Parainfluenza Virus 3 PCR Not Detected (NotDetected); Parainfluenza Virus 4 PCR Not Detected (NotDetected); Respiratory Syncytial VirusPCR Not Detected (NotDetected); Rhinovirus/Enterovirus PCR Not Detected (NotDetected)
[2024-06-10 19:42] LABS: Troponin I High Sensitivity 11.1 pg/ml (0-20)
[2024-06-10 19:51] LABS: Prothrombin Time 11.1 Seconds (9.0-12.0); Thyroid Stimulating Hormone 1.228 uIu/ml (0.300-4.500)
--- NOTE | 2024-06-10 21:25 | History & Physical Report ---
Date of Service June 10, 2024 Assessment & Plan (1) Weakness: (2) Acute on chronic respiratory failure with hypoxia: (3) COPD (chronic obstructive pulmonary disease): (4) Chronic hypoxemic respiratory failure: (5) Acute kidney injury superimposed on CKD: (6) COVID-19: (7) Cardiomyopathy: (8) Chronic heart failure with preserved ejection fraction: (9) Idiopathic polyneuropathy: (10) CAD (coronary artery disease): (11) Hypertension: (12) Diabetes mellitus, type 2: (13) Paroxysmal SVT (supraventricular tachycardia): Plan Generalized weakness- Multifactorial, with contributing factors including but not limited to: Dehydration, acute kidney injury, progression of general debilitation, COVID, COPD exacerbation, others Patient uses a cane, a walker, a scooter, and/or a wheelchair to get around in his home His daughter does not anticipate a need for PT/OT assessment Acute on chronic respiratory failure with hypoxia/COPD exacerbation/COVID- Patient typically requires 4 L cannula oxygen, and continues to be in the 95 to 97% range on 4 L while in the ED Status post dexamethasone 6 mg IV in the ED, and will continue 6 mg IV every morning Status post 1 hour-long DuoNeb in the ED, and will continue DuoNebs every 2 hours as needed He was diagnosed with COVID 5 days ago, when his symptoms began, and primarily has associated adrenal insufficiency Acute kidney injury superimposed on CKD- Creatinine 2.13, with base 1.3 Hold furosemide, lisinopril, magnesium oxide, potassium chloride Placed on LR at 80 mL/h x 1 L Check a renal function panel and magnesium level in the a.m. CAD/hypertension/PSVT/ischemic cardiomyopathy- Holding medications as noted above Reduce metoprolol succinate from 75 mg daily to 50 mg daily Diabetes mellitus- Hold glipizide and metformin Placed on Accu-Cheks with NovoLog SSI BPH with LUTS- Continue tamsulosin at 0.8 mg at bedtime, his [facility] notations suggest his dosing is 0.8 not 0.4 mg Idiopathic polyneuropathy- Gabapentin dosing is 800 mg p.o. 3 times daily History of Present Illness Chief Complaint: The patient presents to the emergency department with worsening shortness of breath, generalized muscle aches and weakness over the past 5 days, having been tested positive for COVID 5 days ago Primary Care Provider: Divine Sibley MD The patient is a 73-year-old male with a past medical history including idiopathic polyneuropathy, cardiomyopathy, HFpEF, hypertension, gout, diabetes mellitus type 2, kidney stones, PSVT, chronic respiratory failure due to severe COPD with 4 L oxygen dependency, and hearing deficit. The patient was noted 5 days ago to develop some generalized muscle aches and weakness, and became more short of breath in spite of not requiring more than his 4 L baseline oxygen. He tested positive for COVID 5 days ago. He walks with a walker, also has a scooter that he uses, and sometimes uses a wheelchair. He also had an instance of scraping his left forearm when he briefly lost his balance, and has been bandaged since that time. His daughter is in the exam room with him in the ED this evening, and helps to supply a significant part of his HPI and ROS. Allergies Allergy/AdvReac Type Severity Reaction Status Date / Time No Known Allergies Allergy Verified 04/30/23 10:17 Home Medications Medication Instructions Recorded Confirmed Type gabapentin 800 mg tablet 800 mg PO BID 07/08/18 04/30/23 History glipizide 5 mg tablet 5 mg PO BID 07/08/18 04/30/23 History lisinopril 20 mg tablet 20 mg PO BID 07/08/18 04/30/23 History magnesium oxide 400 mg PO BID 07/08/18 04/30/23 History metformin 1,000 mg tablet 1,000 mg PO BID 07/08/18 04/30/23 History multivitamin 1 tab PO QAM 07/08/18 04/30/23 History potassium chloride 20 mEq 20 meq PO QAM 07/08/18 04/30/23 History tablet,extended release rosuvastatin 40 mg tablet (Crestor) 40 mg PO QAM 07/08/18 04/30/23 History furosemide 40 mg tablet (Lasix) 40 mg PO QAM 06/04/20 04/30/23 History aspirin 81 mg tablet,delayed 81 mg PO QAM 07/08/20 04/30/23 History release tamsulosin 0.4 mg capsule 0.4 mg PO HS #30 caps 07/22/20 04/30/23 Rx metoprolol succinate 100 mg 100 mg PO DAILY 11/16/22 04/30/23 History tablet,extended release 24 hr peg 3350-sod [id number] See Rx Instructions PO .COMPLEX #2 06/08/23 Rx 178.7-7.3-0.5-1.12-0.9 gram oral mL soln (Suflave) Past Med/Surg History Problem List (Updated 06/10/24 @ 23:51 by Zain Jackson MD) Acute on chronic respiratory failure with hypoxia Acute kidney injury superimposed on CKD Weakness (Acute) COVID-19 (Acute) Urinary symptom or sign Chronic heart failure with preserved ejection fraction Cardiomyopathy Ischemic CM Vitamin D deficiency Idiopathic polyneuropathy CAD (coronary artery disease) S/p NSTEMI and CABG x 3 IN 2015 Hypertension Gout Diabetes mellitus, type 2 Abdominal pain (Acute) Acute pulmonary edema (Acute) Acute respiratory failure (Acute) Bladder stones (Acute) Hypotension (Acute 09/09/13) Kidney stones (Acute) Paroxysmal SVT (supraventricular tachycardia) Respiratory failure (Acute) Urolithiasis (Acute 09/09/13) Urosepsis (Acute) Hearing deficit Encounter for pre-operative examination Polyp of colon COPD (chronic obstructive pulmonary disease) Influenza A Chronic hypoxemic respiratory failure (Acute) Hyponatremia Elevated BUN Medical History AVNRT (AV lisa re-entry tachycardia) Chronic diastolic CHF (congestive heart failure) On home oxygen therapy Chronic obstructive pulmonary disease Gout Cancer Peripheral neuropathy Myocardial Infarction Hyperlipidemia Surgical History S/P cystoscopy with ureteral stent placement S/P ablation of accessory bypass tract History of esophagogastroduodenoscopy (EGD) History of colonoscopy History of tooth extraction History of coronary artery bypass graft Social History Smoking Status: Current every day smoker Tobacco Type: Cigarettes Cigarettes Per Day: 15 CIGS PER WEEK; Second Hand Exposure: No; Do You Dip or Chew Tobacco: No; Hx Alcohol Use: No Hx Substance Use: No Preferred Language: Wallisian Communication Ability: Effective Accounts Payable Lead Required: No Beliefs That Will Affect Care: None marital status: Current Living Situation: Alone Feels Safe at Home: Yes Assistive Devices: Cane, Denture - Upper, Denture - Lower, Glasses, Hearing Aid - Bilateral, Oxygen - Continuous and Walker Review of Systems Review of Systems: The patient denies chest pain, palpitations, lower extremity swelling, sore throat, fevers, chills, sweats, nausea, vomiting, diarrhea , constipation, abdominal pain, pelvic pain, blood in urine or stool, dysuria, urinary frequency or urgency, lightheadedness, dizziness, headache, loss of consciousness, abnormal bruising or bleeding, focal weakness, numbness or tingling in arms, back or neck pain, or night sweats. The review of systems is otherwise negative other than for that already noted above, and at least 10 systems have been reviewed. Physical Exam Physical Exam: The patient is awake, alert and oriented 3, appears fatigued, normocephalic and atraumatic, lying in bed and in no acute distress. He allows his daughter to an swer a number of the questions for him HEENT--PERRL, EOMI, mucous membranes and oropharynx mildly dry. Neck--supple. No JVD. No bruits. Thyroid normal, trachea midline, no adenopathy. Heart--normal S1 and S2. No murmurs, rubs or gallops. Lungs--clear bilaterally, decreased breath sounds throughout. No respiratory distress, no accessory muscle use. Abdomen--normal bowel sounds and soft. Nontender. Nondistended, no hernias or masses, no organomegaly. Extremities--No edema. Dermatologic--normal skin turgor, normal color, no abnormal lymph nodes, no rash. Neurologic--cranial nerves II through XII grossly intact. Rheumatologic--normal range of motion. Psychiatric--normal affect. Results & Data Results & Data Vital Signs (Past 12 Hours) Vital Signs Temp Pulse Pulse Resp BP BP Pulse Ox 06/10/24 20:13 131/90 97 06/10/24 19:27 90 18 94 06/10/24 18:42 94 H 98 06/10/24 18:40 94 H 113/89 98 06/10/24 18:34 96 H 06/10/24 18:17 36.2 C L 102 H 20 105/71 93 O2 Del Method O2 Flow Rate 06/10/24 20:13 Nasal Cannula 4 06/10/24 19:27 Nasal Cannula 4 06/10/24 18:42 Room Air 06/10/24 18:40 Nasal Cannula 4 06/10/24 18:34 11/02/24 18:17 Nasal Cannula 4 Laboratory Results Laboratory Results WBC 8.31 K/ul (4.8-10.8) 06/10/24 19:00 RBC 3.61 M/uL (4.70-6.10) L 06/10/24 19:00 Hgb 10.7 g/dl (14.0-18.0) L 06/10/24 19:00 Hct 34.3 % (42.0-52.0) L 06/10/24 19:00 MCV 95.0 fL (80.0-100.0) 06/10/24 19:00 MCH 29.6 pg (25.0-34.0) 06/10/24 19:00 MCHC 31.2 g/dL (32.0-36.0) L 06/10/24 19:00 RDW Std Deviation 44.5 fL (36.4-46.3) 06/10/24 19:00 RDW Coeff of Zeny 12.9 % (11.5-14.5) 06/10/24 19:00 Plt Count 328 K/uL (130-400) 06/10/24 19:00 MPV 9.5 fL (9.4-12.4) 06/10/24 19:00 Immature Gran % (Auto) 0.5 % 06/10/24 19:00 Neut % (Auto) 69.8 % 06/10/24 19:00 Lymph % (Auto) 17.9 % 06/10/24 19:00 Eddy % (Auto) 11.1 % 06/10/24 19:00 Eos % (Auto) 0.5 % 06/10/24 19:00 Baso % (Auto) 0.2 % 06/10/24 19:00 Neut # (Auto) 5.80 K/uL (1.40-6.50) 06/10/24 19:00 Lymph # (Auto) 1.49 K/uL (1.20-3.40) 06/10/24 19:00 Eddy # (Auto) 0.92 K/uL (0.11-0.59) H 06/10/24 19:00 Eos # (Auto) 0.04 K/uL (0.00-0.50) 06/10/24 19:00 Baso # (Auto) 0.02 K/uL (0.00-0.20) 06/10/24 19:00 Immature Gran # (Auto) 0.04 K/uL (0.01-0.20) 06/10/24 19:00 PT 11.1 Seconds (9.0-12.0) 06/10/24 19:00 INR 1.0 (0.9-1.1) 06/10/24 19:00 Sodium 140 mmol/L (136-145) 06/10/24 19:00 Potassium 4.2 mmol/L (3.5-5.1) 06/10/24 19:00 Chloride 95 mmol/L (98-107) L 06/10/24 19:00 Carbon Dioxide 40 mmol/L (21-32) H 06/10/24 19:00 Anion Gap 5 (3-11) 06/10/24 19:00 BUN 22 mg/dl (6-23) 06/10/24 19:00 Creatinine 2.13 mg/dl (0.6-1.4) H 06/10/24 19:00 Est Cr Clr Drug Dosing 32.9 ml/min 06/10/24 19:00 eGFR 31.68 06/10/24 19:00 BUN/Creatinine Ratio 10.3 (10-20) 06/10/24 19:00 Glucose 155 mg/dl (70-99(Fasting)) H 06/10/24 19:00 POC Glucose 187 mg/dl (70-99) H 06/10/24 23:06 Calcium 8.7 mg/dl (8.6-10.3) 06/10/24 19:00 Magnesium 2.1 mg/dl (1.7-2.4) 06/10/24 19:00 Total Bilirubin 0.4 mg/dl (0.2-1.0) 06/10/24 19:00 AST 32 U/L (13-39) 06/10/24 19:00 ALT 15 U/L (7-52) 06/10/24 19:00 Alkaline Phosphatase 96 U/L (34-104) 06/10/24 19:00 Total Creatine Kinase 33 U/L (30-223) 06/10/24 19:00 Troponin I High Sens 11.1 pg/ml (0-20) 06/10/24 19:00 B-Natriuretic Peptide 115 pg/ml (0-100) H 06/10/24 19:00 Total Protein 6.7 gm/dl (6.0-8.3) 06/10/24 19:00 Albumin 2.8 gm/dl (3.4-5.0) L 06/10/24 19:00 Globulin 3.9 gm/dl (2.5-4.0) 06/10/24 19:00 Albumin/Globulin Ratio 0.7 (0.9-2) L 06/10/24 19:00 TSH 1.228 uIu/ml (0.300-4.500) 06/10/24 19:00 Adenovirus (PCR) Not Detected (NotDetected) 06/10/24 18:38 B. pertussis DNA (PCR) Not Detected (NotDetected) 06/10/24 18:38 B.parapertussis DNA PCR Not Detected (NotDetected) 06/10/24 18:38 C. pneumoniae DNA (PCR) Not Detected (NotDetected) 06/10/24 18:38 Coronavirus OC43 (PCR) Not Detected (NotDetected) 06/10/24 18:38 Coronavirus HKU1 (PCR) Not Detected (NotDetected) 06/10/24 18:38 Coronavirus 229E (PCR) Not Detected (NotDetected) 06/10/24 18:38 SARS-CoV-2 (PCR) DETECTED (NotDetected) A 06/10/24 18:38 Coronavirus NL63 (PCR) Not Detected (NotDetected) 06/10/24 18:38 Human Metapneumovir PCR Not Detected (NotDetected) 06/10/24 18:38 Influenza Type A (PCR) Not Detected (NotDetected) 06/10/24 18:38 Influenza Type B (PCR) Not Detected (NotDetected) 06/10/24 18:38 M. pneumoniae (PCR) Not Detected (NotDetected) 06/10/24 18:38 Parainfluenza 1 (PCR) Not Detected (NotDetected) 06/10/24 18:38 Parainfluenza 2 (PCR) Not Detected (NotDetected) 06/10/24 18:38 Parainfluenza 3 (PCR) Not Detected (NotDetected) 06/10/24 18:38 Parainfluenza 4 (PCR) Not Detected (NotDetected) 06/10/24 18:38 RSV (PCR) Not Detected (NotDetected) 06/10/24 18:38 Entero/Rhino (PCR) Not Detected (NotDetected) 06/10/24 18:38 Impressions Chest X-Ray 06/10/24 18:39 EXAM: Radiograph of the Chest 1 View INDICATION: Weakness. Cough. TECHNIQUE: Frontal view of the chest. COMPARISON: 09/01/2019 FINDINGS: Lungs and pleural spaces: Stable pulmonary hyperinflation. Minimal basilar parenchymal scarring noted. No consolidation or pulmonary edema. No pleural effusion or pneumothorax. Heart: Coronary bypass changes noted. Mediastinum: Normal contour. Bones/joints: No fracture, erosion or dislocation. Soft tissues: No abnormality noted. No radiopaque foreign body noted. Vasculature: Stable ectatic aorta. Upper abdomen: No abnormality noted. IMPRESSION: Chronic changes. No acute disease. ACT 112: Negative or not required by law. Electronically signed by Daisy Medrano 06-10-2024 6:53 PM Code Status & VTE Plan Code Status DNR/DNI VTE Prophylaxis Plan VTE Prophylaxis will be ordered: Yes PG Care Time/CCT Total # of Minutes Spent Total Time Spent with Patient: Total time spent is greater than 50% in coordination of care (as documented) at patient's floor/unit and/or counseling patient: Coding Level of Care Code 13777 INT INP/OBS CARE 3/75MIN Diagnoses Weakness R53.1 Acute on chronic respiratory failure with hypoxia J96.21 COPD (chronic obstructive pulmonary disease) J44.9 Chronic hypoxemic respiratory failure J96.11 Acute kidney injury superimposed on CKD N17.9; N18.9 COVID-19 U07.1 Cardiomyopathy I42.9 Chronic heart failure with preserved ejection fraction I50.32 Idiopathic polyneuropathy G60.9 CAD (coronary artery disease) I25.10 Hypertension I10 Diabetes mellitus, type 2 E11.9 Paroxysmal SVT (supraventricular tachycardia) I47.1
[2024-06-10] MEDS ORDERED: ACETAMINOPHEN 325 MG TAB PO PRN (23:00)
[2024-06-10] MEDS ORDERED: ONDANSETRON INJ 2 MG/ML 2 ML VIAL IV PRN (23:00)
[2024-06-10] MEDS ORDERED: DEXTROSE 50% 50 ML SYRINGE IV PRN (23:00)
[2024-06-10] MEDS ORDERED: GLUCAGON FOR INJ 1 MG VIAL SQ PRN (23:00)
[2024-06-10] MEDS ORDERED: GLUCOSE 40% GEL 15 GM TUBE PO PRN (23:00)
[2024-06-10] MEDS ORDERED: CARBOHYDRATES FOR HYPOGLYCEMIA PO PRN (23:00)
[2024-06-10] MEDS ORDERED: GLUCOSE 10 TAB/TUBE PO PRN (23:00)
[2024-06-10] MEDS: LACTATED RINGER'S 1,000 ML IV SCH (23:41)
[2024-06-11 03:35] LABS: Appearance Urine Clear (Clear); Bacteria Urine Automated None Seen (None Seen); Bilirubin Urine Negative (Negative); Blood Urine Trace (Negative); Color Urine Yellow; Glucose Urine UA Negative (Negative); Granular Casts Urine Present /lpf (None Prsent); Ketones Urine Trace (Negative); Leukocyte Esterase Urine Negative (Negative); Nitrite Urine Negative (Negative); Protein Urine 2+ (Negative); RBC Urine Automated 0-2 /hpf (0-2); Specific Gravity Urine 1.017 (1.000-1.030); Urobilinogen Urine Negative (Negative); WBC Urine Automated 0-5 /hpf (0-5); pH Urine 5.5 (4.5-7.5)
[2024-06-11 06:51] LABS: Basophils # (auto) 0.01 K/uL (0.00-0.20); Basophils % (auto) 0.2 %; Hematocrit (blood only) 31.1 % (42.0-52.0); Hemoglobin 9.9 g/dl (14.0-18.0); Immature Granulocytes # (auto) 0.06 K/uL (0.01-0.20); Lymphocytes # (auto) 0.63 K/uL (1.20-3.40); Mean Corpuscular Hemoglobin 29.6 pg (25.0-34.0); Mean Corpuscular Hgb Conc 31.8 g/dL (32.0-36.0); Mean Corpuscular Volume 92.8 fL (80.0-100.0); Mean Platelet Volume 10.1 fL (9.4-12.4); Monocytes % (auto) 4.8 %; Neutrophils # (auto) 5.28 K/uL (1.40-6.50); Platelet Count 314 K/uL (130-400); RDW Coefficient of Variation 12.9 % (11.5-14.5); RDW Standard Deviation 43.8 fL (36.4-46.3); Red Blood Count 3.35 M/uL (4.70-6.10); White Blood Count 6.28 K/ul (4.8-10.8)
[2024-06-11 07:17] LABS: Albumin Level 2.7 gm/dl (3.4-5.0); BUN Creatinine Ratio 10.5 (10-20); Calcium 8.5 mg/dl (8.6-10.3); Creatinine Clr Calc Pharmacy 33.5 ml/min; Estimated Average Glucose 137 mg/dl; Hemoglobin A1C 6.4 % (4.5-5.6); Magnesium 2.1 mg/dl (1.7-2.4); Phosphorus 3.9 mg/dl (2.5-4.9); Potassium 4.7 mmol/L (3.5-5.1)
[2024-06-11] MEDS: MULTIVITAMIN TAB PO SCH (09:01)
[2024-06-11] MEDS: METOPROLOL SUCC 50MG EXT REL TAB PO SCH (09:02)
[2024-06-11] MEDS: GABAPENTIN 300 MG CAP PO SCH (09:02)
[2024-06-11] MEDS: ROSUVASTATIN CALCIUM 20 MG TAB PO SCH (09:02)
[2024-06-11] MEDS: dexAMETHasone 6 MG in SYRINGE 0 ML IV SCH (09:15)
[2024-06-11] MEDS: HEPARIN SOD 5,000 UNIT/0.5 ML VIAL SQ SCH (09:15)
[2024-06-11] MEDS: INSULIN ASPART PER UNIT CHARGE SC SCH (09:15)
[2024-06-11] MEDS: INFLUENZA VACC TS2024-25(65y+)/PF (IIV3) 0.5mL Syr IM ONE (11:40)
--- NOTE | 2024-06-11 17:31 | Electrocardiogram Report ---
Test Reason : Blood Pressure : */* mmHG Vent. Rate : 94 BPM Atrial Rate : 94 BPM P-R Int : 168 ms QRS Dur : 110 ms QT Int : 390 ms P-R-T Axes : 80 89 47 degrees QTcB Int : 487 ms Normal sinus rhythm Left ventricular hypertrophy Cannot rule out Inferior infarct , age undetermined Cannot rule out Anterior infarct , age undetermined Abnormal ECG When compared with ECG of 01-Sep-2019 18:35, No significant change was found Confirmed by Rosa Robert (Annette) on 06/11/2024 5:31:27 PM Referred By: REFERRED SELF Confirmed By: Rosa Robert
--- NOTE | 2024-06-11 18:03 | Hospitalist Progress Note ---
Date of Service June 11, 2024 Assessment & Plan (1) Weakness: (2) Acute on chronic respiratory failure with hypoxia: (3) COPD (chronic obstructive pulmonary disease): (4) Chronic hypoxemic respiratory failure: (5) Acute kidney injury superimposed on CKD: (6) COVID-19: (7) Cardiomyopathy: (8) Chronic heart failure with preserved ejection fraction: (9) Idiopathic polyneuropathy: (10) CAD (coronary artery disease): (11) Hypertension: (12) Diabetes mellitus, type 2: (13) Paroxysmal SVT (supraventricular tachycardia): Plan Generalized weakness- Multifactorial, with contributing factors including but not limited to: Dehydration, acute kidney injury, progression of general debilitation, COVID, COPD exacerbation, others Patient uses a cane, a walker, a scooter, and/or a wheelchair to get around in his home His daughter does not anticipate a need for PT/OT assessment consulted PT/OT Acute on chronic respiratory failure with hypoxia/COPD exacerbation/COVID- Patient typically requires 4 L cannula oxygen, and continues to be in the 95 to 97% range on 4 L while in the ED Status post dexamethasone 6 mg IV in the ED, and will continue 6 mg IV every morning Status post 1 hour-long DuoNeb in the ED, and will continue DuoNebs every 2 hours as needed He was diagnosed with COVID 5 days ago, when his symptoms began, and primarily has associated adrenal insufficiency Acute kidney injury superimposed on CKD- Creatinine 2.13, with base 1.3 Hold furosemide, lisinopril, magnesium oxide, potassium chloride Placed on LR at 80 mL/h x 1 L slightly better ar 2.0 CAD/hypertension/PSVT/ischemic cardiomyopathy- Holding medications as noted above Reduce metoprolol succinate from 75 mg daily to 50 mg daily Diabetes mellitus- Hold glipizide and metformin Placed on Accu-Cheks with NovoLog SSI BPH with LUTS- Continue tamsulosin at 0.8 mg at bedtime, his [facility] notations suggest his dosing is 0.8 not 0.4 mg Idiopathic polyneuropathy- Gabapentin dosing is 800 mg p.o. 3 times daily Admission and Anticipated Discharge Date Admission Date: June 10, 2024 Subjective Patient reports feeling stronger. Not quite at baseline. Review of Systems Review of Systems: All systems reviewed & are unremarkable except as noted in HPI & below Physical Exam Physical Exam: The patient is awake, alert and oriented 3, appears fatigued, normocephalic and atraumatic HEENT--PERRL, EOMI Neck--supple. No JVD. No bruits. Thyroid normal, trachea midline, no adenopathy. Heart--normal S1 and S2. No murmurs, rubs or gallops. Lungs--clear bilaterally, decreased breath sounds throughout. No respiratory distress, no accessory muscle use. Abdomen--normal bowel sounds and soft. Nontender. Nondistended, no hernias or masses, no organomegaly. Extremities--No edema. Results & Data Results & Data Vital Signs (Past 12 Hours) Vital Signs Temp Pulse Resp BP Pulse Ox O2 Del Method O2 Flow Rate 06/11/24 15:41 36.6 C 72 18 115/71 95 Nasal Cannula 4 06/11/24 12:08 36.9 C 71 20 117/70 90 Nasal Cannula 4 06/11/24 09:37 Nasal Cannula 4 06/11/24 07:52 36.6 C 70 20 116/66 93 Nasal Cannula 4 PG Care Time/CCT Total # of Minutes Spent Total Time Spent with Patient: Total time spent is greater than 50% in coordination of care (as documented) at patient's floor/unit and/or counseling patient: Coding Level of Care Code 19321 SUB INP/OBS CARE 2/35MIN Diagnoses Weakness R53.1 Acute on chronic respiratory failure with hypoxia J96.21 COPD (chronic obstructive pulmonary disease) J44.9 Chronic hypoxemic respiratory failure J96.11 Acute kidney injury superimposed on CKD N17.9; N18.9 COVID-19 U07.1 Cardiomyopathy I42.9 Chronic heart failure with preserved ejection fraction I50.32 Idiopathic polyneuropathy G60.9 CAD (coronary artery disease) I25.10 Hypertension I10 Diabetes mellitus, type 2 E11.9 Paroxysmal SVT (supraventricular tachycardia) I47.1
[2024-06-11] MEDS: TAMSULOSIN HCL 0.4 MG CAP PO SCH (20:14)
[2024-06-11] MEDS: ALBUT/IPRATROP 3MG/0.5MG NEB 3 ML VIAL NEB PRN (20:29)
[2024-06-12 07:14] LABS: Basophils # (auto) 0.01 K/uL (0.00-0.20); Basophils % (auto) 0.1 %; Hematocrit (blood only) 29.8 % (42.0-52.0); Hemoglobin 9.5 g/dl (14.0-18.0); Immature Granulocytes # (auto) 0.16 K/uL (0.01-0.20); Immature Granulocytes % (auto) 1.5 %; Lymphocytes # (auto) 1.35 K/uL (1.20-3.40); Mean Corpuscular Hemoglobin 29.3 pg (25.0-34.0); Mean Corpuscular Hgb Conc 31.9 g/dL (32.0-36.0); Mean Platelet Volume 9.6 fL (9.4-12.4); Monocytes # (auto) 0.96 K/uL (0.11-0.59); Monocytes % (auto) 9.2 %; Neutrophils # (auto) 7.91 K/uL (1.40-6.50); Neutrophils % (auto) 76.2 %; Platelet Count 334 K/uL (130-400); RDW Coefficient of Variation 12.9 % (11.5-14.5); RDW Standard Deviation 43.4 fL (36.4-46.3); Red Blood Count 3.24 M/uL (4.70-6.10); White Blood Count 10.39 K/ul (4.8-10.8)
[2024-06-12 07:29] LABS: Albumin Level 2.7 gm/dl (3.4-5.0); Calcium 8.5 mg/dl (8.6-10.3); Magnesium 2.1 mg/dl (1.7-2.4); Phosphorus 3.3 mg/dl (2.5-4.9); Potassium 4.4 mmol/L (3.5-5.1)
[2024-06-12] MEDS: LACTATED RINGER'S 500 ML IV ONE (13:15)
--- NOTE | 2024-06-12 14:06 | Hospitalist Progress Note ---
Date of Service June 12, 2024 Assessment & Plan (1) Weakness: Plan: Multifactorial, with contributing factors including but not limited to: Dehydration, acute kidney injury, progression of general debilitation, COVID, COPD exacerbation Patient uses a cane, a walker, a scooter, and/or a wheelchair to get around in his home PT/OT consulted - recommend home with HH - may need 2 step prior to discharge (2) Acute kidney injury superimposed on CKD: Plan: Creatinine 2.13, with baseline 1.3 Hold furosemide, lisinopril, magnesium oxide, potassium chloride Recieved 1L LR Cr remains stable at 2.0 --> Additional 500cc bolus given 06/12 - cautious with IVF with HF hx (lasix decreased to 20mg daily per last [facility] note), but weight is down from prior Pt also with hx of kidney stones and BPH - denies kidney symptoms - check PVR AM BMP (3) COVID-19: Plan: In the setting of COPD, chronically on 4L O2. Denies home inhaler/nebulizer use. Symptom onset: 06/05 - has not had increased oxygen requirements - continue Dexamethasone IV -outside window of treatment with Remdesivir - prn nebs (4) Anemia: Plan: Hemoglobin 9.5, normocytic. Last hemoglobin at baseline 2 years ago was 13.7 Check iron studies, B12, folate in the morning TSH here is normal at 1.2 (5) CAD (coronary artery disease): Plan: CAD/hypertension/PSVT/ischemic cardiomyopathy- Holding medications as noted above Reduce metoprolol succinate from 75 mg daily to 50 mg daily for relative hypotension on admission (6) Diabetes mellitus, type 2: Plan: Hold glipizide and metformin Placed on Accu-Cheks with NovoLog SSI Plan Chronic stable medical conditions: * Idiopathic polyneuropathy - Gabapentin decreased to 300mg TID based on kidney function * BPH with LUTS- Continue tamsulosin at 0.8 mg at bedtime, his [facility] notations suggest his dosing is 0.8 not 0.4 mg Dispo: continued inpatient stay DVT proh: Heparin Offered to update family, pt declined 06/12 Admission and Anticipated Discharge Date Admission Date: June 10, 2024 Supervising Physician Co-Signing Physician Notes PA Supervision Note: I did not personally see or examine the patient today, but I verified all weston points of SHANNAN Graham's assessment and plan with the following exceptions/additions: None Subjective Patient seen sitting in bed. feels like his breathing is at baseline. reports good appetite. Discussed kidney function Tele - SB 50s Review of Systems Review of Systems: All systems reviewed & are unremarkable except as noted in Subjective Physical Exam Physical Exam: General: NAD, VS as above Resp: normal respiratory effort, expiratory wheezing throughout CV: RRR, no murmur, Abd: normal bowel sounds, non tender, no hepatosplenomegaly Extremities: Moves all extremities, no edema Neuro: A&O x3, Skin: intact, no lesions noted Results & Data Results & Data Vital Signs (Past 12 Hours) Vital Signs Temp Pulse Pulse Resp BP Pulse Ox O2 Del Method 06/12/24 12:44 68 17 92 Nasal Cannula 06/12/24 11:31 97.5 F L 63 16 109/71 93 Nasal Cannula 06/12/24 09:27 64 06/12/24 08:50 Nasal Cannula 06/12/24 07:56 98.1 F 70 20 136/77 98 Nasal Cannula 06/12/24 03:17 98.1 F 81 18 111/66 95 Oxymask O2 Flow Rate 06/12/24 12:44 3 06/12/24 11:31 3 06/12/24 09:27 06/12/24 08:50 06/12/24 07:56 4 06/12/24 03:17 4 Laboratory Results cbc and chemistry reviewed PG Care Time/CCT Total # of Minutes Spent Total Time Spent with Patient: Total time spent is greater than 50% in coordination of care (as documented) at patient's floor/unit and/or counseling patient: Coding Level of Care Code 02825 SUB INP/OBS CARE 3/50MIN Diagnoses Weakness R53.1 Acute kidney injury superimposed on CKD N17.9; N18.9 COVID-19 U07.1 Anemia D64.9 CAD (coronary artery disease) I25.10 Diabetes mellitus, type 2 E11.9
[2024-06-13 06:42] LABS: Basophils # (auto) 0.02 K/uL (0.00-0.20); Basophils % (auto) 0.2 %; Hematocrit (blood only) 29.5 % (42.0-52.0); Hemoglobin 9.5 g/dl (14.0-18.0); Immature Granulocytes % (auto) 1.9 %; Lymphocytes # (auto) 1.38 K/uL (1.20-3.40); Lymphocytes % (auto) 12.8 %; Mean Corpuscular Hemoglobin 29.5 pg (25.0-34.0); Mean Corpuscular Hgb Conc 32.2 g/dL (32.0-36.0); Mean Corpuscular Volume 91.6 fL (80.0-100.0); Mean Platelet Volume 9.7 fL (9.4-12.4); Monocytes # (auto) 1.26 K/uL (0.11-0.59); Monocytes % (auto) 11.7 %; Neutrophils # (auto) 7.92 K/uL (1.40-6.50); Neutrophils % (auto) 73.4 %; Platelet Count 345 K/uL (130-400); RDW Coefficient of Variation 12.9 % (11.5-14.5); Red Blood Count 3.22 M/uL (4.70-6.10); White Blood Count 10.78 K/ul (4.8-10.8)
[2024-06-13 07:14] LABS: BUN Creatinine Ratio 11.3 (10-20); Calcium 8.5 mg/dl (8.6-10.3); Creatinine Clr Calc Pharmacy 35.9 ml/min; Potassium 4.3 mmol/L (3.5-5.1)
[2024-06-13 07:21] LABS: Folate (Folic Acid),Ser orPlas 16.9 ng/ml (>5.38)
[2024-06-13 07:33] LABS: Ferritin 136.7 ng/ml (8-388)
--- NOTE | 2024-06-13 11:50 | Ultrasound Report ---
RENAL ULTRASOUND HISTORY: Acute kidney injury [place] COMPARISON: 05/15/2024 FINDINGS: Right kidney: 13.0 cm. No hydronephrosis. Nonobstructing calculi measure up to 5 mm. Renal cysts rede monstrated measuring up to 5.3 cm, unchanged. A few cysts are again noted to demonstrate thin septati ons. No solid lesions identified. Normal corticomedullary differentiation and cortical thickness. Left kidney: 11.3 cm. No hydronephrosis. Nonobstructing calculi measure up to 2-3 mm. Renal cysts red emonstrated measuring up to 2.9 cm, unchanged. A few cysts are again noted to demonstrate thin septat ions. No solid lesions identified. Normal corticomedullary differentiation and cortical thickness. Bladder: Mild wall thickening again seen. The bilateral ureteral jets were identified. IMPRESSION: 1. Nonobstructing bilateral nephrolithiasis without hydronephrosis. 2. Unchanged simple and septated renal cysts. 3. No solid renal mass lesions identified. ACT 112: Negative or not required by law. Electronically signed by: Ron Regalado M.D. 06/13/2024 11:49 AM
--- NOTE | 2024-06-13 12:01 | Hospitalist Progress Note ---
Date of Service June 13, 2024 Assessment & Plan (1) Weakness: Plan: Multifactorial, with contributing factors including but not limited to: Dehydration, acute kidney injury, progression of general debilitation, COVID, COPD exacerbation Patient uses a cane, a walker, a scooter, and/or a wheelchair to get around in his home PT/OT consulted - recommend home with HH - may need 2 step prior to discharge (2) Acute kidney injury superimposed on CKD: Plan: Creatinine 2.13, with baseline 1.3 (03/2023) - [facility] Renal US: nonobstructing stones, unchanged cyst, no solid renal mass lesions Hold furosemide, lisinopril, magnesium oxide, potassium chloride Received 1.5L LR - cautious with IVF with HF hx (lasix decreased to 20mg daily per last [facility] note), but weight is down from prior Pt also with hx of kidney stones and BPH - denies kidney symptoms - PVR 0 UA with granular cast - possible ATN from hypotension on arrival AM BMP (3) COVID-19: Plan: In the setting of COPD, chronically on 4L O2. Denies home inhaler/nebulizer use. Symptom onset: 06/05 - has not had increased oxygen requirements - continue Dexamethasone IV -outside window of treatment with Remdesivir - prn nebs (4) Anemia: Plan: Hemoglobin 9.5, normocytic. Last hemoglobin at baseline 2 years ago was 13.7 B12/folate: WNL iron studies: consistent with anemia of chronic disease TSH here is normal at 1.2 (5) CAD (coronary artery disease): Plan: CAD/hypertension/PSVT/ischemic cardiomyopathy- CAD s/p NSTEMI and CABG x 3 Holding medications as noted above Resume home ASA and continue statin Reduce metoprolol succinate from 75 mg daily to 50 mg daily for relative hypotension on admission, also with HR 50-60s on tele - [facility] 03/08/2024 reports home dosing is 50mg (6) Diabetes mellitus, type 2: Plan: Hold glipizide and metformin Placed on Accu-Cheks with NovoLog SSI HgbA1C here 6.4%-well controlled BSG acceptable Plan Chronic stable medical conditions: * Idiopathic polyneuropathy - Gabapentin decreased to 300mg TID based on kidney function * BPH with LUTS- Continue tamsulosin at 0.4 mg at bedtime, Dispo: continued inpatient stay DVT proh: Heparin Offered to update family, pt declined 06/12 & 06/13 Admission and Anticipated Discharge Date Admission Date: June 10, 2024 Supervising Physician Co-Signing Physician Notes PA Supervision Note: I did not personally see or examine the patient today, but I verified all weston points of SHANNAN Graham's assessment and plan with the following exceptions/additions: None Subjective patient seen lying in bed - just had his renal US done, does feel like he is urinating normally. no pain with urination breathing feels baseline Tele - SR 50-60s Review of Systems Review of Systems: All systems reviewed & are unremarkable except as noted in Subjective Physical Exam Physical Exam: General: NAD, VS as above Resp: normal respiratory effort, no wheezing today, on 4L CV: RRR, no murmur, Abd: normal bowel sounds, non tender, no hepatosplenomegaly Extremities: Moves all extremities, no edema Neuro: A&O x3, Skin: intact, no lesions noted Results & Data Results & Data Vital Signs (Past 12 Hours) Vital Signs Temp Pulse Pulse Resp BP Pulse Ox O2 Del Method 06/13/24 09:11 Nasal Cannula 06/13/24 07:25 97.5 F L 87 18 121/78 92 High Flow Nasal Cannula 06/13/24 06:53 66 06/13/24 03:25 97.5 F L 95 H 20 136/87 90 Nasal Cannula O2 Flow Rate 06/13/24 09:11 4 06/13/24 07:25 5 06/13/24 06:53 06/13/24 03:25 5 Laboratory Results CBC and chemistry reviewed iron studies reviewed PG Care Time/CCT Total # of Minutes Spent Total Time Spent with Patient: Total time spent is greater than 50% in coordination of care (as documented) at patient's floor/unit and/or counseling patient: Coding Level of Care Code 25091 SUB INP/OBS CARE 3/50MIN Diagnoses Weakness R53.1 Acute kidney injury superimposed on CKD N17.9; N18.9 COVID-19 U07.1 Anemia D64.9 CAD (coronary artery disease) I25.10 Diabetes mellitus, type 2 E11.9
[2024-06-14 06:36] LABS: BUN Creatinine Ratio 10.6 (10-20); Calcium 8.5 mg/dl (8.6-10.3); Creatinine Clr Calc Pharmacy 33.8 ml/min; Potassium 4.4 mmol/L (3.5-5.1)
[2024-06-14] MEDS: ASPIRIN 81 MG ECTAB PO SCH (10:33)
[2024-06-14 11:29] VITALS: TEMP 97.3
[2024-06-14 11:48] LABS: Appearance Urine Clear (Clear); Bacteria Urine Automated None Seen (None Seen); Bilirubin Urine Negative (Negative); Blood Urine Negative (Negative); Cast Urine Automated 0-2 /lpf (0-2); Color Urine Yellow; Epithelial Cell Urine Auto 0-2 /hpf (0-2); Glucose Urine UA Negative (Negative); Ketones Urine Trace (Negative); Leukocyte Esterase Urine Trace (Negative); Nitrite Urine Negative (Negative); Protein Urine 2+ (Negative); RBC Urine Automated 0-2 /hpf (0-2); Specific Gravity Urine 1.012 (1.000-1.030); Urobilinogen Urine Negative (Negative); WBC Urine Automated 0-5 /hpf (0-5); pH Urine 7.5 (4.5-7.5)
--- NOTE | 2024-06-14 14:54 | Discharge Summary ---
Discharge Summary Date of Service June 14, 2024 Principal Dx & Hospital Course #1 = Principal Diagnosis (1) Weakness: Multifactorial, with contributing factors including but not limited to: Dehydration, acute kidney injury, progression of general debilitation, COVID, COPD exacerbation Patient uses a cane, a walker, a scooter, and/or a wheelchair to get around in his home PT/OT consulted - recommend home with HH Respiratory 2 step recommended 2L at rest, 5L with activity (2) Acute kidney injury superimposed on CKD: Creatinine 2.13, with baseline 1.3 (03/2023) - attempt to obtain more recent records from [place] system but without success. Renal US: nonobstructing stones, unchanged cyst, no solid renal mass lesions Received IVF. Lasix and lisinopril held during admission. Renal US as above. No kidney stone symptoms. PVR 0. UA on arrival had granular cast - possible ATN with hypotension on arrival. Repeat UA on day of discharge without cast. - switched lasix to 20mg prn for edema/weight gain on discharge - BMP ordered for HH on Monday 06/[address] Guy and PCP (3) COVID-19: In the setting of COPD, chronically on 4L O2. Denies home inhaler/nebulizer use. Symptom onset: 06/05 - Now needs 5L with exertion, 2LNC at rest. Outside of treatment window for Remdesivir. - received Dexamethasone IV - discharged with continued course PO (4) Anemia: Hemoglobin 9.5, normocytic. Last hemoglobin at baseline 2 years ago was 13.7 B12/folate: WNL iron studies: consistent with anemia of chronic disease TSH here is normal at 1.2 Follow as outpt with PCP/Nephrology (5) CAD (coronary artery disease): CAD/hypertension/PSVT/ischemic cardiomyopathy- CAD s/p NSTEMI and CABG x 3 Continue home ASA and continue statin Continue metoprolol succinate 50mg - unclear what his dosing was prior, new rx for 50mg sent. (6) Diabetes mellitus, type 2: Home regimen: Metformin - to be continued at discharge HgbA1C 6.4%-well controlled Plan Chronic stable medical conditions: * Idiopathic polyneuropathy - Gabapentin decreased to 300mg TID based on kidney function * BPH with LUTS- Continue tamsulosin at 0.4 mg at bedtime, Dispo: discharge to home today with home health Offered to update family, pt declined 06/12 & 06/13 Notes For Next Care Provider Medications in our system were quite out of date, med rec completed based on patient knowledge and last [facility] note Suspect bumped Cr is his new baseline with overall worsening of his CKD , now with 2+ proteinuria Medication Changes From Visit stop lisinopril but may need to resume as outpatient with Nephrology given proteinuria lasix changed to prn metoprolol decreased continue course of dexamethasone Admission HPI Per Admitting Provider The patient is a 73-year-old male with a past medical history including idiopathic polyneuropathy, cardiomyopathy, HFpEF, hypertension, gout, diabetes mellitus type 2, kidney stones, PSVT, chronic respiratory failure due to severe COPD with 4 L oxygen dependency, and hearing deficit. The patient was noted 5 days ago to develop some generalized muscle aches and weakness, and became more short of breath in spite of not requiring more than his 4 L baseline oxygen. He tested positive for COVID 5 days ago. He walks with a walker, also has a scooter that he uses, and sometimes uses a wheelchair. He also had an instance of scraping his left forearm when he briefly lost his balance, and has been bandaged since that time. His daughter is in the exam room with him in the ED this evening, and helps to supply a significant part of his HPI and ROS. Discharge Exam General: NAD, VS as above Resp: normal respiratory effort, lungs clear to auscultation CV: RRR, no murmur, Abd: normal bowel sounds, non tender, no hepatosplenomegaly Extremities: Moves all extremities, no edema Neuro: A&O x3, Skin: intact, no lesions noted Discharge Plan Discharge Items Patient Disposition: Home - Home Health Services Reason For Visit: WEAKNESS, JOAO ON CKD, DEHYDRATION, COVID Discharge Diagnosis: Dehydration, COVID Activity: Resume your previous activity Activity Comment: work with therapy to get stronger Weightbearing: Full weightbearing Non-emergency contact: Primary Care Provider and Undercollar Maker Call non-emergency contact if: you have any medication questions and your symptoms worsen Follow-up/Referrals: Cherrie Escobedo MD [Physician] - 06/16/24 10:40 am (Nephrology) Shari Melendez PA-C [Primary Care Provider] - (please call to schedule follow up with your PCP within 7 days ) Diet: Carb Consistent or DM2 and Heart Healthy Addtl Attending Provider Instructions: Mr. Rabago, You were admitted to the hospital after having increasing weakness with COVID. Your weakness was likely related also to dehydration. You were evaluated by physical therpay and recommended home health services which we have arranged. You will be continued on steroids to help your lungs - take these once a day in the morning. You also had worsening of your kidney function which is likely your new baseline. For this reason the lisinopril and furosemide (lasix) were stopped. The lasix is your water pill, and will now only need to be taken as needed for leg swelling or weight gain. If you gain more than 2# in one day please take the lasix. If you are having to take your lasix more than twice in one week please call your PCP. It is very important that your follow up with Dr. Guy to make sure your kidney function is followed up on. We did an US that did not show any reason for acute worsening of your kidney function. Your metoprolol dose was decreased to 50mg a day. You should have 50mg tablets at home that you were taking one and a half of, now you should only take one but I also sent in a new prescription. Your new oxygen recommendations are 2L at rest and 5L with activity. Medications: Your medication list has been reviewed and reconciled upon discharge to ensure accuracy and continuity of care. An updated list of all your medications is included with your hospital discharge paperwork. Please review this list closely, and make note of any changes. Take your medications as instructed; do not skip a dose of your medicines. Make sure all of your doctors know every medicine you are taking (including nheg-oku-mozhhcy medicines, vitamins, and supplements). Call your primary care provider before taking any new medicines (including over- the-counter medicines, vitamins, and supplements), because some of these may interact with your current medications, or may make your symptoms worse. Tell your primary care provider if you cannot afford your medications. Activity: You can do normal everyday activities as your body allows. Take rest breaks if you feel tired. Do not overexert. Stop activity if you have pain, shortness of breath or feel dizzy. Follow-up appointments: Make an appointment with your primary care physician within one week of discharge. A copy of this summary will be sent to them. Every time you see your primary care physician, or any other doctor, bring your medication list, and a list of questions. CONTACT YOUR PRIMARY CARE PROVIDER if you experience any of the following: Shortness of breath or difficulty breathing Fevers or chills Feeling tired with normal activity or experiencing dizziness or fainting Difficulty following your treatment plan, or difficulty taking medications CALL 911 OR GO TO THE EMERGENCY DEPARTMENT if you experience any of the following: Severe abdominal pain or nausea/vomiting Severe chest pain, or chest pain that radiates (moves) to your jaw or arm Sudden, severe shortness of breath or difficulty breathing Thank you for allowing us to participate in your care. Pending Studies at Discharge: No Stand-Alone Forms: My [facility], Smoking Cessation Medications and DC Order Prescriptions: New furosemide [Lasix] 20 mg tablet 20 mg PO DAILY PRN (Reason: edema) Qty: 30 0RF Rx Instructions: for weight gain >2# in one day, or leg swelling dexamethasone 6 mg tablet 6 mg PO DAILY Qty: 5 0RF Rx Instructions: start AM of 06/15 Continued multivitamin Tablet 1 tab PO QAM metformin 1,000 mg Tablet 1,000 mg PO BID rosuvastatin [Crestor] 40 mg Tablet 40 mg PO QAM magnesium oxide 400 mg Capsule 400 mg PO BID potassium chloride 20 mEq Tablet Extended Release 20 meq PO QAM PRN (Reason: with lasix) aspirin 81 mg Tablet,Delayed Release (Dr/Ec) 81 mg PO QAM tamsulosin 0.4 mg Capsule 0.4 mg PO HS gabapentin 300 mg Capsule 300 mg PO TID fluticasone propion-salmeterol 250-50 mcg/dose Blister With Device 1 inh INHALATION BID metoprolol succinate 50 mg Tablet Extended Release 24 Hr 50 mg PO DAILY 30 Days Qty: 30 0RF Discharge Orders: Discharge Order (Routine); Ordered 06/14/24 Ordered By: Yolande Brink/Other Patient Handouts: Managing Type 2 Diabetes Admission Data Admit Date/Time: 06/10/24 21:25 Attending Provider: Jazz Sequeira Admit Provider: Zain Jackson Primary Care Provider: Shari Melendez Other Providers: Zain Jackson; [facility]; [facility] Fax Other Interventions: Discharge Summary Assessment (RN) Last Done: 06/14/24 14:59 Hospital Stay Data Consultations 06/10/24 20:34 ED Decision to Admit Stat Diagnostic Imagining Performed Chest X-Ray 06/10/24 18:39 EXAM: Radiograph of the Chest 1 View INDICATION: Weakness. Cough. TECHNIQUE: Frontal view of the chest. COMPARISON: 09/01/2019 FINDINGS: Lungs and pleural spaces: Stable pulmonary hyperinflation. Minimal basilar parenchymal scarring noted. No consolidation or pulmonary edema. No pleural effusion or pneumothorax. Heart: Coronary bypass changes noted. Mediastinum: Normal contour. Bones/joints: No fracture, erosion or dislocation. Soft tissues: No abnormality noted. No radiopaque foreign body noted. Vasculature: Stable ectatic aorta. Upper abdomen: No abnormality noted. IMPRESSION: Chronic changes. No acute disease. ACT 112: Negative or not required by law. Electronically signed by Daisy Medrano 06-10-2024 6:53 PM Renal Ultrasound 06/13/24 09:42 RENAL ULTRASOUND HISTORY: Acute kidney injury joao COMPARISON: 05/15/2024 FINDINGS: Right kidney: 13.0 cm. No hydronephrosis. Nonobstructing calculi measure up to 5 mm. Renal cysts redemonstrated measuring up to 5.3 cm, unchanged. A few cysts are again noted to demonstrate thin septations. No solid lesions identified. Normal corticomedullary differentiation and cortical thickness. Left kidney: 11.3 cm. No hydronephrosis. Nonobstructing calculi measure up to 2- 3 mm. Renal cysts redemonstrated measuring up to 2.9 cm, unchanged. A few cysts are again noted to demonstrate thin septations. No solid lesions identified. Normal corticomedullary differentiation and cortical thickness. Bladder: Mild wall thickening again seen. The bilateral ureteral jets were identified. IMPRESSION: 1. Nonobstructing bilateral nephrolithiasis without hydronephrosis. 2. Unchanged simple and septated renal cysts. 3. No solid renal mass lesions identified. ACT 112: Negative or not required by law. Electronically signed by: Ron Regalado M.D. 06/13/2024 11:49 AM Pending Results Patient Have Any Pending Studies at Discharge: No Discharge Instructions Given to Patient (Per Discharging Provider) Mr. Rabago, Ben were admitted to the hospital after having increasing weakness with COVID. Your weakness was likely related also to dehydration. You were evaluated by physical therpay and recommended home health services which we have arranged. You will be continued on steroids to help your lungs - take these once a day in the morning. You also had worsening of your kidney function which is likely your new baseline. For this reason the lisinopril and furosemide (lasix) were stopped. The lasix is your water pill, and will now only need to be taken as needed for leg swelling or weight gain. If you gain more than 2# in one day please take the lasix. If you are having to take your lasix more than twice in one week please call your PCP. It is very important that your follow up with Dr. Guy to make sure your kidney function is followed up on. We did an US that did not show any reason for acute worsening of your kidney function. Your metoprolol dose was decreased to 50mg a day. You should have 50mg tablets at home that you were taking one and a half of, now you should only take one but I also sent in a new prescription. Your new oxygen recommendations are 2L at rest and 5L with activity. Medications: Your medication list has been reviewed and reconciled upon discharge to ensure accuracy and continuity of care. An updated list of all your medications is included with your hospital discharge paperwork. Please review this list closely, and make note of any changes. Take your medications as instructed; do not skip a dose of your medicines. Make sure all of your doctors know every medicine you are taking (including vhvw-oga-vgguess medicines, vitamins, and supplements). Call your primary care provider before taking any new medicines (including over- the-counter medicines, vitamins, and supplements), because some of these may interact with your current medications, or may make your symptoms worse. Tell your primary care provider if you cannot afford your medications. Activity: You can do normal everyday activities as your body allows. Take rest breaks if you feel tired. Do not overexert. Stop activity if you have pain, shortness of breath or feel dizzy. Follow-up appointments: Make an appointment with your primary care physician within one week of discharge. A copy of this summary will be sent to them. Every time you see your primary care physician, or any other doctor, bring your medication list, and a list of questions. CONTACT YOUR PRIMARY CARE PROVIDER if you experience any of the following: Shortness of breath or difficulty breathing Fevers or chills Feeling tired with normal activity or experiencing dizziness or fainting Difficulty following your treatment plan, or difficulty taking medications CALL 911 OR GO TO THE EMERGENCY DEPARTMENT if you experience any of the following: Severe abdominal pain or nausea/vomiting Severe chest pain, or chest pain that radiates (moves) to your jaw or arm Sudden, severe shortness of breath or difficulty breathing Thank you for allowing us to participate in your care. Supervising Physician Co-Signing Physician Notes PA Supervision Note: I personally saw and examined the patient. I verified all weston points and agree with SHANNAN Graham with the following exceptions and/or additions: S-Pt feeling better, stronger, less SOB. Renal function remained stable so may not have been JOAO O- Vitals reviewed Gen: [AAOx3, NAD] HEENT: [anicteric sclerae, EOMI] CV: [RRR no mgr nl S1S2] Pulm: [+mild wheezing, no rackles,rhonchi] A/P-73 yo male with COPD on chronic O2, CKD stage 3, here with possible JOAO, COVID-19, acute on chronic respiratory failure with hypoxia Plan outlined as above, stable for dc to home Total Time Total Time Spent Total Time Spent (In Minutes): Time spent day of discharge 45 minutes including direct patient care, medication reconciliation, documentation, review of labs and images, and coordination of care. Coding Level of Care Code 07635 INP/OBS DISCH >30 MIN Diagnoses Weakness R53.1 Acute kidney injury superimposed on CKD N17.9; N18.9 COVID-19 U07.1 Anemia D64.9 CAD (coronary artery disease) I25.10 Diabetes mellitus, type 2 E11.9
[2024-06-14 15:00] VITALS: BP 118/65; PULSE 76; RESP 18; O2SAT 97
== END 2024-06-14 16:07 | disposition home health service (06) | DRG 177 ==
LOC: ED 18:13 → 2N 21:25 → SUATTDRO 21:25 → 2N 22:54